=== PATIENT | male | born 1960 ===

== ENCOUNTER → 2024-03-03 06:31 | Day surgery (SDC) | payer OTHER, SELFPAY | LOC: GI 06:31 | PROVIDERS: ATTENDING PHYSICIAN Internal Medicine Gastroenterology; FAMILY PHYSICIAN Family Medicine Adult Medicine | DX: Z12.11 Encounter for screening for malignant neoplasm of colon (principal); K64.8 Other hemorrhoids; K57.30 Diverticulosis of large intestine without perforation or abscess without bleeding; Z86.010 Personal history of colon polyps; D17.5 Benign lipomatous neoplasm of intra-abdominal organs | CPT/HCPCS: G0105 ==

== ENCOUNTER → 2024-10-05 07:46 | Outpatient (REF) | payer OTHER, SELFPAY | LOC: PAVMRI 07:46 | PROVIDERS: ATTENDING PHYSICIAN Nurse Practitioner Adult Health; FAMILY PHYSICIAN Family Medicine Adult Medicine | DX: R41.89 Other symptoms and signs involving cognitive functions and awareness (principal) | CPT/HCPCS: 70553; A9575 ==

== ENCOUNTER → 2025-04-01 08:20 | Outpatient (REF) | payer OTHER, SELFPAY | LOC: RAD 08:20 | PROVIDERS: FAMILY PHYSICIAN Family Medicine Adult Medicine | DX: I77.71 Dissection of carotid artery (principal) | CPT/HCPCS: 72125 ==